=== PATIENT | female | born 1995 | race Caucasian/White ===

== ENCOUNTER 2020-02-19 15:43 | Emergency (ER) | payer SELFPAY ==
[2020-02-19 16:43] VITALS: BP 134/98; PULSE 80; RESP 16; TEMP 37.8; O2SAT 100; BMI 28.9
--- NOTE | 2020-02-19 16:52 | PC.NURSE ---
AFTER TRIAGE PT DECIDED TO LEAVE - FEELING BETTER. THOUGH SHE HAD A PANIC ATTACK. WILL RETURN PRN
== END 2020-02-19 17:00 | disposition left against medical advice (07) ==
PROVIDERS: Emergency Provider Emergency Medicine
DX: M54.9 Dorsalgia, unspecified (principal)
CPT/HCPCS: 99281; 99282

== ENCOUNTER 2022-03-22 22:31 | Emergency (ER) | payer SELFPAY | END 2022-03-23 00:12 | disposition left against medical advice (07) | PROVIDERS: Emergency Provider Emergency Medicine | DX: S09.90XA Unspecified injury of head, initial encounter (principal); X58.XXXA Exposure to other specified factors, initial encounter; Y93.9 Activity, unspecified; Y92.9 Unspecified place or not applicable; Y99.9 Unspecified external cause status ==

== ENCOUNTER 2024-03-01 13:22 | Outpatient (REF) | payer OTHER, SELFPAY ==
[2024-03-01 13:40] LABS: MANUAL DIFF FLAG NO
[2024-03-01 14:13] LABS: Basophils Absolute Auto 0.1 X10*3/uL (0.0-0.2); Basophils Percent Auto 0.6 % (0-2); Eosinophils Absolute Auto 0.1 X10*3/uL (0.0-0.4); Hematocrit 39.4 % (37.0-47.0); Hemoglobin 13.4 g/dl (12.0-16.0); Imm Gran Abs Auto 0.05 X10*3/uL (0.00-0.03); Imm Gran Pct Auto 0.6 % (0.0-0.4); Lymphocytes Absolute Auto 2.2 X10*3/uL (1.2-4.9); Lymphocytes Percent Auto 25.2 % (20-40); Mean Corpuscular Volume 85.3 fL (80.0-98.0); Mean Platelet Volume 10.3 fL (9.4-12.3); Monocytes Absolute Auto 0.6 X10*3/uL (0.1-1.2); Monocytes Percent Auto 6.8 % (2-11); Neutrophils Absolute Auto 5.7 x10*3/uL (2.0-8.3); Neutrophils Percent Auto 65.8 % (45-73); Platelet Count 288 X10*3/uL (160-400); Red Blood Count 4.62 X10*6/uL (4.20-5.50); White Blood Count 8.7 X10*3/uL (4.8-10.8)
[2024-03-01 15:04] LABS: Alanine Aminotransferase 16 U/L (0-31); Albumin Level 4.5 g/dL (3.5-5.0); Alkaline Phosphatase 56 U/L (39-117); Anion Gap 10 (12-20); Aspartate Amino Transferase 19 U/L (5-31); Bilirubin Total 0.3 mg/dL (0.0-1.0); Blood Urea Nitrogen 10 mg/dL (9-16); Calcium 9.3 mg/dL (8.4-10.2); Carbon Dioxide 23 mmol/L (22-29); Chloride 110 mmol/L (96-108); Estimated Glomerular Filt Rate > 60; Glucose Random 93 mg/dL (60-115); Sodium 139 mmol/L (135-145); Total Protein 7.3 g/dL (6.5-8.0)
[2024-03-01 15:16] LABS: Free T4 (Free Thyroxine) 1.01 ng/dL (0.71-1.85); TSH reflex Free T4 0.76 uIU/mL (0.32-4.0)
[2024-03-01 15:20] LABS: Vitamin B12 625 pg/mL (200-900)
[2024-03-06 15:48] LABS: Vitamin D 25-OH, D2 <4 ng/mL; Vitamin D 25-OH, D3 24 ng/mL; Vitamin D 25-OH, Total 24 ng/mL (30-100)
== END 2024-03-01 13:23 | disposition home or self-care (01) ==
LOC: HO.LAB 13:22
DX: Z00.00 Encounter for general adult medical examination without abnormal findings (principal)
CPT/HCPCS: 36415; 80053; 82306; 82607; 82746; 84439; 84443; 85025

== ENCOUNTER 2024-09-14 22:14 | Emergency (ER) | payer SELFPAY ==
--- NOTE | ~2024-09-14 | XR_ITS ---
CLINICAL HISTORY: dog bite 3 view left hand Comparison: None Findings: No fractures or dislocations. No significant loss of joint space or osteophytes. No erosions. No radiopaque foreign body. Mildly diffuse soft tissue swelling. IMPRESSION: 1. No acute fracture This document has been electronically signed by: Sai Nixon MD on 09/15/2024 01:39:27
[2024-09-14 22:17] VITALS: BP 141/88; PULSE 85; RESP 16; TEMP 36.9; O2SAT 99; BMI 31.2
--- NOTE | 2024-09-14 23:29 | ED.ANIMALBIT ---
HPI - Animal Bite General Chief Complaint: Animal Bite Stated Complaint: dog bite Time Seen by Provider: 09/14/24 23:28 Source: patient and old records reviewed Mode of arrival: ambulatory Limitations: no limitations History of Present Illness ED Provider: MIGUEL GARCIA narrative: 29 yo female with PMH of asthma, anxiety here with c/o taking her dog's sweater off and he freaked out and he lashed out and bit her at the base of the thumb. No other injuries. Dog is UTD on rabies. No recent Tdap. Bleeding controlled. 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) Animal: dog Description of animal: household pet and immunizations UTD Mechanism: bite Location - Extremities: left: hand Pain description: dull and constant Context: unprovoked (thinks something happened and caused pain when she removed his sweater) Associated symptoms: none Treatments prior to arrival: wound dressing(s) Related Data Previous Rx's ?Medication ?Instructions ?Recorded montelukast 10 mg tablet 10 mg PO DAILY 30 days #30 tabs 09/21/22 (Singulair) tizanidine 2 mg tablet 2 mg PO Q8H PRN muscle spasticity 09/21/22 10 days #30 tabs albuterol sulfate 90 mcg/actuation 1 inh inhalation QID PRN shortness 12/02/23 aerosol inhaler of breath or wheezing 30 days #8.5 grams cefuroxime axetil 500 mg tablet 500 mg PO BID 3 days #6 tabs 09/15/24 hydrocodone 5 mg-acetaminophen 325 1 tab PO Q6H PRN pain #8 tabs 09/15/24 mg tablet metronidazole 500 mg tablet 500 mg PO BID 3 days #6 tabs 09/15/24 ondansetron 4 mg disintegrating 4 mg PO Q8H PRN nausea and 09/15/24 tablet vomiting #20 tabs Allergies Allergy/AdvReac Type Severity Reaction Status Date / Time amoxicillin Allergy Mild Rash Verified 09/14/24 22:18 Sulfa (Sulfonamide Allergy Unknown Verified 09/14/24 22:18 Antibiotics) tetracycline Allergy Unknown Verified 09/14/24 22:18 Review of Systems Review of Systems: Constitutional : No Fever, No Chills, Cardiovascular : No Chest Pain, No SOB Respiratory : No Dyspnea Gastrointestinal : No abdominal pain Musculoskeletal : No Joint Swelling Skin : No rash, positive skin laceration Neuro : No Weakness, No Numbness all other systems reviewed and are negative [facility] Past Medical History Attestation statement: The following information was validated with the patient. Source: old records reviewed Medical History (Updated 09/14/24 @ 23:48 by Dorcas Ontiveros DO) Asthma RAAD (generalized anxiety disorder) Surgical History History of lumpectomy of left breast History of wisdom tooth extraction History of tonsillectomy Family History Family History Mother Anxiety Father Substance use disorder Social History Social History Housing: House Alcohol intake: never Tobacco use type: Smokeless Tobacco e-Cigarette/Vaping Use: Currently Using Second Hand Smoke Exposure: No Advance Directives: No Advance Directives Information Provided: No Do you have a plan to hurt others: No Plan service: No Current occupational status: employed Current occupation: RN- [employer] Cognitive needs: No Hearing needs: No Vision needs: Yes Physical Exam ED Vital Signs: Vital Signs - 24 hr 09/14/24 22:17 Temperature 98.5 F Pulse Rate 85 Respiratory Rate 16 Blood Pressure 141/88 H Pulse Oximetry 99 Oxygen Delivery Method Room Air BMI result Body Mass Index 31.2 Appearance: Alert. Oriented X3. No acute distress. Eyes: Pupils equal, round and reactive to light. ENT: Pharynx normal. Neck: Normal inspection. Neck supple. CVS: Pulses normal. Respiratory: No respiratory distress. Abdomen: atraumatic Skin: Skin warm and dry. Normal skin color. Extremities:L hand thumb NV intact, normal ROM has small 0.5cm puncture wound in thumb and 1st digit webspace, down to dermis, no active bleeding very small Neuro: Oriented X 3. No motor deficit. No sensory deficit. CN2-12 intact Medications Administered Discontinued Medications Generic Name Dose Route Start Last Admin Trade Name Freq PRN Reason Stop Dose Admin Hydrocodone Bitart/Acetaminophen 1 tab 09/14/24 23:36 09/15/24 00:16 Hydrocodone Bit/Acetam 5/325 Tablet PO 09/14/24 23:37 1 tab ONCE ONE Administration Cefuroxime Axetil 500 mg 09/14/24 23:34 09/15/24 00:17 Cefuroxime Axetil 500 Mg Tablet PO 09/14/24 23:35 500 mg ONCE ONE Administration Diphtheria/Tetanus/Acell Pertussis 0.5 ml 09/14/24 23:36 09/15/24 00:17 Diphth,Pertus(Acell),Tet Adult 0.5 Ml Syringe IM 09/14/24 23:37 0.5 ml .ONCE ONE Administration Metronidazole 500 mg 09/14/24 23:34 09/15/24 00:17 Metronidazole 500 Mg Tablet PO 09/14/24 23:35 500 mg ONCE ONE Administration Ondansetron HCl 4 mg 09/14/24 23:36 09/15/24 00:17 Ondansetron Odt 4 Mg Tab.Rapdis TRANSLINGU 09/14/24 23:37 4 mg ONCE ONE Administration Medical Decision Making Medical Decision Making MDM Narrative: 29 yo female with PMH of asthma, anxiety here with c/o L hand dog puncture wound she is NV intact, normal ROM of hand - she has many allergies to abx at this time will start proph abx coverage with ceftin and flagyl for 3 days. Will xray for fracture low susp, given the size of the wound 0.5cm down to dermis I will close with steri strips after irrigation. Differential Diagnosis Differential Diagnoses: The differential diagnosis associated with the presentation includes puncture wound, dog bite Admission/Observation Consideration of admission/observation: Escalation of care including admission/observation considered stable for outpatient management Independent Interpretation I performed an independent interpretation of an: Plain X-Ray (no fracture) Radiology Impression Discussion of test interpretation with radiology: I have reviewed the radiologist's reading. Independent Historian Clinical information obtained from an independent historian. History obtained from or confirmed by: Friend External Record Review External record reviewed: Outpatient record Prescription Management I considered prescription management with: Pain Medication and Antibiotic Procedures Laceration Laceration 1: Site: hand Side (If applicable): left Size (cm): 0.5 Description: other (superficial puncture wound) Depth: simple, single layer Pre-repair: wound explored, irrigated extensively and deep structures intact Skin layer closed with: other (steri strip) Discharge Plan Discharge Clinical Impression: Dog bite, Puncture wound Patient Disposition: Home, Self-Care Instructions: Animal Bite (ED), Puncture Wound (ED) Additional Instructions: keep clean and dry do not get wet for the next 5 days unless soiled change dressing in 24 hours return for redness, fevers, yellow drainage steri strips will fall off on its own allow them to fall off initial xray read normal if there is anything unusual after radiologist reviews it I will call you On a cephalosporin?antibiotic, softer bowel movements are to be expected. Call your provider if you move your bowels more than 4 times a day, your bowel movements are almost all liquid, or you get a rash.?? On metronidazole, do NOT drink alcohol.? Call your provider if a metallic taste, loss of appetite, or nausea makes it difficult for you to eat.? Call your provider promptly if tingling develops in your hands or feet after you have taken a total of 30 grams or more of metronidazole. ? Prescriptions: New cefuroxime axetil 500 mg tablet 500 mg PO BID 3 Days Qty: 6 0RF ondansetron 4 mg tablet,disintegrating 4 mg PO Q8H PRN (Reason: nausea and vomiting) Qty: 20 0RF metronidazole 500 mg tablet 500 mg PO BID 3 Days Qty: 6 0RF hydrocodone-acetaminophen 5-325 mg tablet 1 tab PO Q6H PRN (Reason: pain) Qty: 8 0RF Rx Instructions: partial fill okay; Partial Fill upon patient request. No Action albuterol sulfate 90 mcg/actuation HFA aerosol inhaler 1 inh inhalation QID PRN (Reason: shortness of breath or wheezing) 30 Days Qty: 8.5 0RF montelukast [Singulair] 10 mg tablet 10 mg PO DAILY 30 Days Qty: 30 3RF tizanidine 2 mg tablet 2 mg PO Q8H PRN (Reason: muscle spasticity) 10 Days Qty: 30 0RF Stand Alone Forms: Work/School Release Print Language: British
[2024-09-15] MEDS: HYDROcodone Bit/Acetam 5/325 TABLET 1 TAB PO (00:16)
[2024-09-15] MEDS: cefuroxime axetiL 500 MG TABLET PO (00:17)
[2024-09-15] MEDS: Ondansetron ODT 4 MG TAB.RAPDIS TRANSLINGU (00:17)
[2024-09-15] MEDS: Diphth,Pertus(ACell),Tet Adult 0.5 ML SYRINGE IM (00:17)
[2024-09-15] MEDS: metroNIDAZOLE 500 MG TABLET PO (00:17)
--- NOTE | 2024-09-15 00:22 | PC.NURSE ---
This RN assumed pt care @ 2300. Pt a&ox4, no signs of distress. Pt reports 6/10 pain in the left hand Pt medicated per mar Pts family at bedside Plan of care ongoing.
[2024-09-15 00:46] VITALS: BP 117/88; PULSE 86; RESP 16; TEMP 36.3; O2SAT 98
[2024-09-15 00:49] VITALS: BP 117/88; PULSE 86; RESP 16; TEMP 36.3; O2SAT 98
== END 2024-09-15 00:51 | disposition home or self-care (01) ==
PROVIDERS: Emergency Provider Emergency Medicine
DX: S61.432A Puncture wound without foreign body of left hand, initial encounter (principal); W54.0XXA Bitten by dog, initial encounter; Y93.89 Activity, other specified; Y92.009 Unspecified place in unspecified non-institutional (private) residence as the place of occurrence of the external cause; Y99.9 Unspecified external cause status; Z23 Encounter for immunization
CPT/HCPCS: 73130; 90471; 90715; 99284

== ENCOUNTER → 2024-09-15 00:01 | Outpatient (BNV) | payer SELFPAY | PROVIDERS: Emergency Provider Emergency Medicine; Visit Provider Radiology Diagnostic Radiology | DX: S61.402A Unspecified open wound of left hand, initial encounter (principal); W54.0XXA Bitten by dog, initial encounter | CPT/HCPCS: 73130 ==

== ENCOUNTER 2024-10-29 12:06 | Emergency (ER) | payer OTHER, SELFPAY ==
--- OUTSIDE RECORDS SUMMARY | 2017-02-18 10:49 | XMS_ITS | Continuity of Care Document ---
Author Organization [facility] Address [address] [place] [address] [place] [address] Phone Care Team Providers Care Director Of Music Therapy Name Role Phone Fercho Catalan MD Unavailable Unavailable Allergies, Adverse Reactions, Alerts Substance Reaction Status Criticality Tetracyclines Active No Information amoxicillin Active No Information Medications Medication Instructions Dosage Effective Dates (start - stop) Status Comments dexamethasone 4 mg tablet take 1 tablet Post Op Day 3 - Active May crush. Additional pill for use in case first one is lost. Adipex-P 37.5 mg capsule take 1 capsule by oral route every day before breakfast - Active ibuprofen 800 mg tablet take 1 tablet by oral route 3 times every day with food 800 MG - Active NuvaRing 0.12 mg -0.015 mg/24 hr vaginal insert 1 vaginal ring by vaginal route every month leave in place for 3 weeks, remove for 1 week 1.00 vaginal ring - Active Paxil CR 12.5 mg tablet,extended release take 1 tablet by oral route every day 12.5 MG - Active ProAir HFA 90 mcg/actuation aerosol inhaler inhale 2 puff by inhalation route every 4 - 6 hours as needed - Active tramadol 50 mg tablet take 1 tablet by oral route every 6 hours as needed 50 MG - Active Xanax 0.25 mg tablet take 1.5 tablet by oral route every day 0.375 MG - Active Zanaflex 4 mg capsule take 1 capsule by oral route every day 4 MG - Active multivitamin tablet once daily - Active Vitamin C 500 mg tablet once daily - Active hydrocodone 10 mg-acetaminophen 325 mg tablet take 1 tablet by oral route every 4 - 6 hours as needed for pain 1.00 tablet - No Longer Active Procedures Procedure Date Tonsillectomy >12 PRE-OP (DNB) Office Consult Level 4 Comprehensive Audiometry Tympanometry Advance Directives Directive Yes / No Effective Date File Name No Information Encounters Encounter Description Practice Location Reason(s) For Visit Diagnoses Date Provider Providers Copied on Encounter [address] , [place], [place], [id number], [place] tel:[phone] [facility] No Information 7 Alayna Brantley. [address] [place] [address], [id number] , [place]. tel: [phone] [address] , [place], [place], [id number], [place] tel:[phone] [facility] No Information 7 Alayna Brantely. [address] [place] [address], [id number] , [place]. tel: [phone] Referring Provider: Everett Monet, [address] [place] [address], [id number] . tel:[phone] [place] [id number], [place] tel:[phone] [facility] Pre Op Tonsillectomy (chief complaint) Chronic tonsillitis 7 Alayna Brantley. [address] [place] [address], [id number] , [place]. tel: [phone] Referring Provider: Fercho Catalan, [address] [place] [address], [id number] . tel:[phone] Office Consult Level [address] [place], [id number], [place] tel:[phone] [facility] Sore throat (chief complaint) Unspecified hearing loss, unspecified earChronic tonsillitisOt her chronic diseases of tonsils and adenoidsOtalg ia, bilateral Jan- Chiki Floyd. [address] [place] [address], [id number] , [place]. tel: [phone] Referring Provider: Antwan Bateman, [address] [place], [address]. tel:[phone] , [place], [place], [id number], [place] tel:[phone] [facility] Otalgia, bilateral Jan- Chiki Bran. [address] [place] [address], [id number], [place]. tel: [phone] Referring Provider: Everett Monet, [address] [place] [address], [id number] . tel:[phone] , [place], [place], [id number], [place] tel:[phone] [facility] No Information Chiki Floyd. [address] [place] [address], [id number] , [place]. tel: [phone] Family History Family Member Type Diagnosis Age At Onset Maternal grandfather Problem (finding) malignant neopl asm of lung Maternal grandmother Problem (finding) malignant neopl asm of lung Paternal grandfather Problem (finding) malignant neopl asm of lung Maternal grandmother Problem (finding) chronic obstruc tive lung disease Father Problem (finding) Hepatitis B Father Problem (finding) Hepatitis C Payers Payer name Insurance type Covered green party ID Authoriza tion(s) No Information Social History Type Description Quantity Date Captured Comments Alcohol Use Details Unknown Caffeine Use Details Unknown Tobacco Use Status No Information Smoking Status No Information Sex Female Chief Complaint And Reason For Visit No Information Reason For Referral Reason For Referral No Information Plan Of Treatment Date Type Action Status Goal HPV (1st). Due on due Goal Td vaccine. Due on due Goal Depression screening. Due on due Goal Physical Exam. Due on due Goal Tdap. Due on due Goal PAP. Due on due Goal Influenza vaccine. Due on Oc due Goal PAP. Due on due Goal Influenza vaccine. Due on due Goal HPV (). Due on due Goal Depression screening. Due on due Goal Td vaccine. Due on due Goal Tdap. Due on due Goal Physical Exam. Due on due Goal Depression screening. Due on due Goal HPV (1st). Due on due Goal Physical Exam. Due on due Goal Td vaccine. Due on due Goal Influenza vaccine. Due on due Goal Tdap. Due on due Goal PAP. Due on due Goal Tdap. Due on due Goal HPV (1st). Due on due Goal Depression screening. Due on due Goal PAP. Due on due Goal Physical Exam. Due on due Goal Td vaccine. Due on due Goal Influenza vaccine. Due on due Patient Education Hearing Tests: About selina Tests completed History Of Present Illness Encounter Date Complaint History Of Prese nt Illness Pre Op Tonsillectomy Pre-op for tonsillectomy . The nature, risks and benefits of the procedure were explained to the patient and parents. The risks include but are not limited to postoperative or perioperative hemorrhage, infection, respiratory obstruction, velopharyngeal insufficiency, alteration of taste, numbness of the tongue, alteration of voice and medical or anesthetic complications. Alternatives inclulde chronic antibiotic therapy versus doing nothing. They understand the nature, risks and benefits of the procedure as well as the alternatives and indicate a willingness to proceed as scheduled.Maral Lopez LPN Sore throat (comments) history o f recurrent episodes of severe sore throat causing missed time from work or school. No documented strep but occasional tonsilloliths. No exterminator helper improvement with antibiotics or OTC meds. Snoring intermittent. Sore throat Functional Status Date Functional Assessmen t No Information Instructions Date Instruction Additional Infor mation No Information Assessments Type Assessment Date No Information Patient Care Teams Name Effective Dates (start - stop) Status Members No Information
--- NOTE | ~2024-10-29 | XR_ITS ---
EXAMINATION: XR LUMBOSACRAL SPINE CLINICAL INFORMATION: back pain COMPARISON: None available. TECHNIQUE: Three views of the lumbosacral spine. FINDINGS: There are vestigial ribs at L1. Vertebral body height and alignment is preserved. Disc spaces are maintained. XR/XR lumbar spine 2-3V IMPRESSION: Unremarkable examination. Electronically signed by: Bob Lake MD 10/29/2024 01:31 PM EDT
--- NOTE | ~2024-10-29 | XR_ITS ---
EXAMINATION: XR SACRUM AND COCCYX CLINICAL INFORMATION: pain COMPARISON: None available. TECHNIQUE: 2 views of the sacrum and 2 views of the coccyx were obtained. FINDINGS: SI joints are symmetrical without narrowing, sclerosis, or effusion. No fracture lines or irregular step-offs are noted. XR/XR sacrum coccyx min 2V IMPRESSION: Unremarkable sacrum and coccyx Electronically signed by: Bob Lake MD 10/29/2024 01:31 PM EDT
[2024-10-29 12:18] VITALS: BP 129/87; PULSE 90; RESP 16; TEMP 36.1; O2SAT 99; BMI 31.9
--- NOTE | 2024-10-29 12:18 | ED_ITS ---
HPI - Back Pain/Injury General Chief Complaint: Back Pain/Injury Stated Complaint: Back Pain Injury @ Work 2 Wks Ago Time Seen by Provider: 10/29/24 17:23 History of Present Illness ED Provider: Chadwick Mancilla MD HPI Narrative: This is a 29-year-old female with chronic upper back pain. 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 Patient denies any incontinence, numbness or motor deficits. She feels an occasional twinge of electric-like pain down the left leg although the pain is primarily in her right upper buttock region. No direct blow to the back she had x-rays ordered prior to my evaluation of her at triage Related Data Previous Rx's ?Medication ?Instructions ?Recorded montelukast 10 mg tablet 10 mg PO DAILY 30 days #30 t abs 09/21/22 (Singulair) tizanidine 2 mg tablet 2 mg PO Q8H PRN muscle spast icity 09/21/22 10 days #30 tabs albuterol sulfate 90 mcg/actuation 1 inh inhalation QI D PRN shortness 12/02/23 aerosol inhaler of breath or wheezing 30 day s #8.5 grams cefuroxime axetil 500 mg tablet 500 mg PO BID 3 days # 6 tabs 09/15/24 hydrocodone 5 mg-acetaminophen 325 1 tab PO Q6H PRN pa in #8 tabs 09/15/24 mg tablet metronidazole 500 mg tablet 500 mg PO BID 3 days #6 ta bs 09/15/24 ondansetron 4 mg disintegrating 4 mg PO Q8H PRN nausea and 09/15/24 tablet vomiting #20 tabs methocarbamol 750 mg tablet 750 mg PO TID PRN spasms 5 days 10/29/24 #15 tabs Allergies Allergy/AdvReac Type Severity Reaction Status Date / Time amoxicillin Allergy Mild Rash Verified 10/29/24 12:20 Sulfa (Sulfonamide Allergy Unknown Verified 10/29/24 12:20 Antibiotics) tetracycline Allergy Unknown Verified 10/29/24 12:20 PMF Past Medical History Medical History (Updated 10/30/24 @ 00:00 by Philip Haines) Asthma RAAD (generalized anxiety disorder) Surgical History History of lumpectomy of left breast History of wisdom tooth extraction History of tonsillectomy Family History Family History Mother Anxiety Father Substance use disorder Social History Social History Housing: House Alcohol intake: never Tobacco use type: Smokeless Tobacco Smoked in Last 30 Days: No e-Cigarette/Vaping Use: Currently Using Second Hand Smoke Exposure: No Use of substances other than those prescribed or required for medical reasons: No Advance Directives: No Advance Directives Information Provided: No Patient : No service: No Current occupational status: employed 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 Head: Atraumatic Eyes: Anicteric, Normal conjunctiva. ENT: Moist mucosa, no pallor. ? Neck: Supple. Skin: ?No observable rash or bruising on exposed or examined skin Respiratory: Breathing comfortably, No distress.Clear to auscultation bilaterally, symmetric chest expansion, No wheeze, rales, ronchi. Cardiovascular: Regular rate and rhythm. No murmurs or rub. Well perfused periphery, warm extremities. No edema. ? Abdominal: No FOCAL TENDERNESS. Soft, no objective distension. No palpable masses or obvious organomegaly. ?No guarding, no rebound tenderness or other peritoneal findings. : No flank tenderness. Neuro: Alert. Gross movement of all extremities intact. ?5/5 strength bilateral lower extremities proximal and distal. Psych: Calm. Cooperative. MSK: No grossly visible deformity. Mild tenderness right upper buttock region no bruising. Right lumbosacral area slightly tender. No midline tenderness Vital signs: See flowsheet Course Course Course Narrative: This is an RME: Additional HPI, ROS, PE not included below will be deferred to primary provider. RME assessment and note performed by: Jennifer Chiang PA-C This is a [id number]-female who presents to the ER with complaints of back pain for several weeks. Reports that she was at work moving a patient and injured her back. Reports that she did not report this at her job. Patient reports tenderness palpation along the lumbar midline spine into the right lumbar paraspinous muscles. Does report pain radiates down her left leg. No saddle an esthesia. No urinary symptoms. Does report chance of , last menstrual period was October 06 Plan: U preg, x-rays Medications Administered Discontinued Medications Generic Name Dose Route Start Last Admin Trade Name Freq PRN Reason Stop Dose Admin Acetaminophen 975 mg 10/29/24 17:35 10/29/24 17:53 Acetaminophen 325 Mg Tablet PO 10/29/24 17:36 975 mg ONCE ONE Administration Ketorolac Tromethamine 15 mg 10/29/24 17:35 10/29/24 17:54 Ketorolac Tromethamine 15 Mg/Ml Vial IM 10/29/24 17:36 15 mg ONCE ONE Administration Lidocaine 2 patch 10/29/24 17:35 10/29/24 17:54 Lidocaine 4 % Patch Adh..Patch TRANSDERMA 10/29/24 17:36 2 patch ONCE ONE Administration Protocol Methocarbamol 750 mg 10/29/24 17:35 10/29/24 17:54 Methocarbamol 750 Mg Tablet PO 10/29/24 17:36 750 mg ONCE ONE Administration Medical Decision Making Medical Decision Making MDM Narrative: 29-year-old female with right lumbosacral back pain. No direct blow or injury she attributes this to a twisting or lifting type injury while at work proximally 6 days ago. No red flag signs or symptoms patient looks well although she has occasionally tearful and reports severe pain. Doubt acute neuro compressive injury or process. She is ambulatory and comfortable. Differential Diagnosis Differential Diagnoses: The differential diagnosis associated with the presentation includes Lumbosacral strain, disc herniation, sciatica, piriformis syndrome, spasm Lab Data Labs: Lab Results 10/29/24 Range/Units 12:45 Urine Test NEGATIVE (NEGATIVE) Discharge Plan Discharge Clinical Impression: Lumbar back pain Patient Disposition: Home, Self-Care Instructions: Acute Low Back Pain (ED) Additional Instructions: DISCHARGE DIAGNOSES: Right low back pain. Unclear cause HISTORY OF PRESENTATION: 6 days of right low back pain EMERGENCY DEPARTMENT COURSE,TESTS, TREATMENTS: While in the ED today you had x- rays of your the sacrum and pelvis and lumbar bones without signs of bony injury DISCHARGE MEDICATIONS: ?[We have made no changes to your regular medication regimen] FOLLOW-UP: ?Call your primary or general physician soon as possible to discuss your symptoms, your ED visit and to discuss follow up plans You will need follow up with your primary doctor and/or pain management if this persists INSTRUCTIONS ?& RETURN PRECAUTIONS: If any symptoms change first call your primary physician, if it is after-hours your primary doctors office should have a provider neighborhood conservation officer you can speak with. If the symptoms are severe or very concerning to you then call 911 or return to the ED. We recommend warm soaks, topical Voltaren gel which is [id number], massage or heating pad as well as NSAIDs such as ibuprofen 600 or 800 mg every 8 hours. Chadwick Mancilla MD Emergency Physician [facility] Prescriptions: New methocarbamol 750 mg tablet 750 mg PO TID PRN (Reason: spasms) 5 Days Qty: 15 0RF No Action albuterol sulfate 90 mcg/actuation HFA aerosol inhaler 1 inh inhalation QID PRN (Reason: shortness of breath or wheezing) 30 Days Qty: 8.5 0RF cefuroxime axetil 500 mg tablet 500 mg PO BID 3 Days Qty: 6 0RF ondansetron 4 mg tablet,disintegrating 4 mg PO Q8H PRN (Reason: nausea and vomiting) Qty: 20 0RF metronidazole 500 mg tablet 500 mg PO BID 3 Days Qty: 6 0RF hydrocodone-acetaminophen 5-325 mg tablet 1 tab PO Q6H PRN (Reason: pain) Qty: 8 0RF Rx Instructions: partial fill okay; Partial Fill upon patient request. montelukast [Singulair] 10 mg tablet 10 mg PO DAILY 30 Days Qty: 30 3RF tizanidine 2 mg tablet 2 mg PO Q8H PRN (Reason: muscle spasticity) 10 Days Qty: 30 0RF Stand Alone Forms: Work/School Release Interventions: ED Discharge Assessment Last Done: 10/29/24 19:32 Discharge Date/Time: 10/29/24 19:38 Print Language: Romanian
[2024-10-29 12:51] LABS: UPreg QC Valid YES; Urine Pregnancy NEGATIVE (NEGATIVE)
[2024-10-29 17:02] VITALS: BP 122/74; PULSE 68; RESP 16; TEMP 37.1; O2SAT 99
[2024-10-29] MEDS: Acetaminophen 325 MG TABLET 975 MG PO (17:53)
[2024-10-29] MEDS: methocarbamoL 750 MG TABLET PO (17:54)
[2024-10-29] MEDS: Ketorolac Tromethamine 15 MG/ML VIAL IM (17:54)
[2024-10-29] MEDS: Lidocaine 4 % Patch ADH..PATCH 2 PATCH TRANSDERMA (17:54)
[2024-10-29 19:24] VITALS: BP 121/75; PULSE 68; RESP 16; TEMP 36.8; O2SAT 99
[2024-10-29 19:32] VITALS: BP 121/75; PULSE 68; RESP 16; TEMP 36.8; O2SAT 99
== END 2024-10-29 19:38 | disposition home or self-care (01) ==
PROVIDERS: Physician Assistant Medical; Emergency Provider Emergency Medicine
DX: M54.50 Low back pain, unspecified (principal); M54.6 Pain in thoracic spine; Z79.899 Other long term (current) drug therapy
CPT/HCPCS: 72100; 72220; 81025; 96372; 99284; J1885

== ENCOUNTER → 2024-10-29 12:22 | Outpatient (BNV) | payer OTHER, SELFPAY | PROVIDERS: Visit Provider Radiology Diagnostic Radiology | DX: M54.50 Low back pain, unspecified (principal); M54.18 Radiculopathy, sacral and sacrococcygeal region | CPT/HCPCS: 72100; 72220 ==

== ENCOUNTER 2025-03-19 10:06 | Emergency (ER) | payer OTHER, SELFPAY ==
--- NOTE | ~2025-03-19 | US_ITS ---
EXAMINATION: US OBSTETRICAL ULTRASOUND CLINICAL INFORMATION: Cramping. Gestational age estimated at 5 weeks. COMPARISON: None available. LMP: 02/12/2025. Gestational age by maternal dates is 5 weeks 0 days. TECHNIQUE: Transabdominal and transvaginal first trimester OB ultrasound FINDINGS: The uterus is anteverted and measures 8.6 x 3.8 x 4.8 cm. There is an intrauterine gestational sac. No pole or yolk sac. Gestational sac is slightly abnormal in shape, oblong in appearance. Mean sac diameter measures 0.75 cm which would suggest gestational age of 5 weeks 3 days. There is a small hypoechoic area adjacent to the gestational sac questionable for subchorionic hemorrhage. MATERNAL ADNEXA: The right maternal ovary measures 4.5 x 2.2 x 2.1 cm. 3 x 2.2 x 2.1 cm simple cyst. The left maternal ovary measures 2.9 x 1.4 x 2.4 cm. 1.3 x 1.1 x 1 cm complex cyst. Small amount of maternal pelvic ascites. US/US OB pelvic and transvaginal IMPRESSION: Intrauterine gestational sac. No pole or yolk sac. Gestational sac slightly abnormal or elongated in shape. Mean sac diameter suggests gestational age 5 weeks 3 days. Probable small subchorionic hemorrhage. Bilateral ovarian cysts measuring up to 3 cm on the right. Recommend correlation with serial quantitative beta hCG and follow-up OB ultrasound in 1-2 weeks. Electronically signed by: Ani Genao MD 03/19/2025 03:05 PM [facility] [place]
[2025-03-19 10:33] VITALS: BP 132/93; PULSE 101; RESP 20; TEMP 36.7; O2SAT 100; BMI 30.8
--- NOTE | 2025-03-19 10:34 | ED.GENADULT ---
HPI - General Adult General Chief complaint: General Medical Stated complaint: Upper resp. and preg. Time Seen by Provider: 03/19/25 13:52 Source: patient, RN notes reviewed and old records reviewed Mode of arrival: ambulatory Limitations: no limitations History of Present Illness ED Provider: Susi HPI narrative: Patient is a 30 y/o A1 female LMP 02/12/25 presenting with complaint of congestion, cough, chills, fevers, headaches and lightheadedness for the past 3 weeks. Lungs hurt from coughing, fatigue. Just had several positive tests, was supposed to have first OB appt today but came here instead due to symptoms. Plans to proceed with this . She reports some mild lower abdominal cramping but denies any vaginal bleeding or other abnormal vaginal discharge. MD complaint: cough, abd cramping in Onset (ago): week(s) Related Data Previous Rx's ?Medication ?Instructions ?Recorded montelukast 10 mg tablet 10 mg PO DAILY 30 days #30 tabs 09/21/22 (Singulair) tizanidine 2 mg tablet 2 mg PO Q8H PRN muscle spasticity 09/21/22 10 days #30 tabs albuterol sulfate 90 mcg/actuation 1 inh inhalation QID PRN shortness 12/02/23 aerosol inhaler of breath or wheezing 30 days #8.5 grams cefuroxime axetil 500 mg tablet 500 mg PO BID 3 days #6 tabs 09/15/24 hydrocodone 5 mg-acetaminophen 325 1 tab PO Q6H PRN pain #8 tabs 09/15/24 mg tablet metronidazole 500 mg tablet 500 mg PO BID 3 days #6 tabs 09/15/24 ondansetron 4 mg disintegrating 4 mg PO Q8H PRN nausea and 09/15/24 tablet vomiting #20 tabs methocarbamol 750 mg tablet 750 mg PO TID PRN spasms 5 days 10/29/24 #15 tabs amoxicillin 500 mg tablet 1,000 mg (2 x 500 mg) PO TID 5 03/19/25 days #30 tabs Allergies Allergy/AdvReac Type Severity Reaction Status Date / Time amoxicillin Allergy Mild Rash Verified 03/19/25 10:36 Sulfa (Sulfonamide Allergy Unknown Verified 03/19/25 10:36 Antibiotics) tetracycline Allergy Unknown Verified 03/19/25 10:36 Review of Systems Review of Systems: As per HPI Yes all other systems are reviewed and are negative Constitutional: Constitutional: Reports as per HPI [facility] Past Medical History Medical History (Updated 03/19/25 @ 15:30 by Philip Haines) Asthma RAAD (generalized anxiety disorder) Surgical History History of lumpectomy of left breast History of wisdom tooth extraction History of tonsillectomy Family History Family History Mother Anxiety Father Substance use disorder Social History Social History Housing: House Alcohol intake: never Tobacco use type: Smokeless Tobacco e-Cigarette/Vaping Use: Currently Using Second Hand Smoke Exposure: No Advance Directives: No Advance Directives Information Provided: Yes Do you have a plan to hurt others: No Plan service: No Current occupational status: employed Current occupation: RN- [employer] Cognitive needs: No Hearing needs: No Vision needs: Yes Physical Exam ED Vital Signs: Vital Signs - 24 hr 03/19/25 10:33 03/19/25 15:30 Temperature 98.1 F 98.1 F Pulse Rate 101 H 101 H Respiratory Rate 20 20 Blood Pressure 132/93 H 132/93 H Pulse Oximetry 100 100 Oxygen Delivery Method Room Air Room Air BMI result Body Mass Index 30.8 Vital signs have been reviewed and appear to be correct. Blood pressure normal. Heart rate slightly tachycardic. Respiratory rate normal. Temperature normal. Oxygen saturation normal. Const General: cooperative, healthy appearing and no acute distress Orientation/consciousness: oriented to person, oriented to place, oriented to time and patient oriented x3 Limitations: no limitations HENMT Head: Yes normocephalic and Yes atraumatic Ears: external ears normal General nose exam: Normal external nose present Face and sinus: Yes face symmetric Mouth: oropharynx normal and moist mucous membranes Throat: Yes uvula midline Eyes Pupils: Equal, round and reactive pupils present Neck Neck: Yes normal visual inspection and Yes supple Resp Effort & Inspection: normal respiratory effort and able to speak in complete sentences Auscultation: clear to auscultation bilaterally Cardio Rate: regular rate Rhythm: regular rhythm Heart sounds: S1 normal heart sound present and S2 normal heart sound present GI Palpation (GI): Soft to palpation and nontender Auscultation: normoactive bowel sounds General: Yes no CVA tenderness Back/Spine/Pelvis Back: no CVA tenderness Skin General skin exam: elasticity normal and turgor normal Neuro General: oriented to person, oriented to place, oriented to time, patient oriented x3, moves all extremities, no focal motor deficits and CN's II-XI intact bilaterally Cranial nerves: Yes Equal, round and reactive pupils present Cognition (Neuro): normal cognition Extrem General: Yes full ROM, Yes no pedal edema and Yes no calf tenderness Psych Mental Status: mental status grossly normal Affect: normal affect Thought process: Normal thought process present Course Course Course Narrative: This is a rapid medical exam performed by Ellie Goldman NP: Additional HPI, ROS, PE not included below will be deferred to primary provider. Patient is a 30 y/o A1 female LMP 02/12 presenting with complaint of congestion, cough, chills, fevers for the past 3 weeks. Lungs hurt from coughing, fatigue. Just had several positive tests, was supposed to have first OB appt today but came here instead due to sxs. Plan: labs, viral swabs Medical Decision Making Medical Decision Making MDM Narrative: Patient is a 30 y/o A1 female LMP 02/12/25 presenting with complaint of congestion, cough, chills, fevers, headaches and lightheadedness for the past 3 weeks. On exam patient is awake, A+Ox3, VS WNL, afebrile, normal neurological exam without focal deficits, physical exam findings as above. Given reported symptoms and physical exam findings, initial differential includes but is not limited to viral illness, bronchitis, pneumonia, ectopic , UTI. Labs unremarkable. Patient specifically requesting chest x-ray. Discussed with patient that the chest x-ray is not safe in , and we can treat her with antibiotics presumptively. Patient has several allergies to antibiotics. Discussed that azithromycin would be the most appropriate choice but that there is a possible risk of spontaneous based on conflicting human data. Patient expressing concern regarding this however, and specifically requesting amoxicillin. Documented allergy of rash, which she states is from childhood. She denies hives or anaphylaxis. I am agreeable to trying amoxicillin but discussed with patient that if she develops any allergic symptoms she should stop this medication immediately and follow up with her primary care provider. Patient states that after her U/S she called her mother who reported that patient's only reaction to amoxicillin was a rash after several courses of it as a child. Never hives or anaphylaxis. OB U/S notable for gestational sac without pole or yolk sac, probable small subchorionic hemorrhage. My interpretation is in agreement with the radiologist's interpretation. Results discussed with patient and all questions answered. Advised patient to contact her director television news to discuss these results and establish follow up care. Discussed at length if she is unable to obtain OB follow up, she can present to [facility] as a walk-in. Return precautions discussed including vaginal bleeding, worsening cramping, etc. Patient verbalized understanding of and agreement with plan. Differential Diagnosis Differential Diagnoses: The differential diagnosis associated with the presentation includes as per [facility] Admission/Observation Consideration of admission/observation: Escalation of care including admission/observation considered Patient would have been admitted to the hospital and transferred to appropriate facility had their clinical presentation warranted hospital admission. Lab Data 03/19/25 11:21 03/19/25 11:21 Labs: Lab Results 03/19/25 03/19/25 Range/Units 11:18 11:21 WBC 8.4 (4.8-10.8) X10*3/uL RBC 4.65 (4.20-5.50) X10*6/uL Hgb 13.4 (12.0-16.0) g/dl Hct 40.5 (37.0-47.0) % MCV 87.1 (80.0-98.0) fL MCH 28.8 (27.0-33.0) pg MCHC 33.1 (31.0-35.0) g/dl RDW 12.8 (11.0-16.0) % Plt Count 266 (160-400) X10*3/uL MPV 9.7 (9.4-12.3) fL Immature Gran % (Auto) 0.5 H (0.0-0.4) % Neut % (Auto) 72.5 (45-73) % Lymph % (Auto) 15.2 L (20-40) % [place] % (Auto) 10.7 (2-11) % Eos % (Auto) 0.7 (0-4) % Baso % (Auto) 0.4 (0-2) % Lymph # (Auto) 1.3 (1.2-4.9) X10*3/uL [place] # (Auto) 0.9 (0.1-1.2) X10*3/uL Eos # (Auto) 0.1 (0.0-0.4) X10*3/uL Baso # (Auto) 0.0 (0.0-0.2) X10*3/uL Abs Immat Gran (auto) 0.04 H (0.00-0.03) X10*3/uL Absolute Neuts (auto) 6.1 (2.0-8.3) x10*3/uL Absolute Nucleated RBC 0.000 (0.0-0.012) X10*3/uL Nucleated RBC % (auto) 0.0 (0.0-0.2) /100WBC Sodium 137 (135-145) mmol/L Potassium 4.7 (3.3-5.1) mmol/L Chloride 107 (96-108) mmol/L Carbon Dioxide 23 (22-29) mmol/L Anion Gap 12 (12-20) BUN 8 L (9-16) mg/dL Creatinine 0.61 (0.5-1.4) mg/dL Estim Creat Clear Calc 117.9 Estimated GFR > 60 Random Glucose 90 (60-115) mg/dL Calcium 9.6 (8.4-10.2) mg/dL Total Bilirubin 0.3 (0.0-1.0) mg/dL AST 20 (5-31) U/L ALT 15 (0-31) U/L Alkaline Phosphatase 67 (39-117) U/L Total Protein 7.7 (6.5-8.0) g/dL Albumin 4.8 (3.5-5.0) g/dL Beta HCG, Quant 5381 mIU/mL Influenza Type A (PCR) NEGATIVE (Negative) Influenza Type B (PCR) NEGATIVE (Negative) RSV RNA Qual (PCR) NEGATIVE (Negative) SARS-CoV-2 RNA (RT-PCR) NEGATIVE (Negative) Independent Interpretation I performed an independent interpretation of an: Ultrasound Interpretation: OB U/S notable for gestational sac without pole or yolk sac, probable small subchorionic hemorrhage. Radiology Impression Discussion of test interpretation with radiology: I have reviewed the radiologist's reading. Radiologist Impression: US/US OB pelvic and transvaginal IMPRESSION: Intrauterine gestational sac. No pole or yolk sac. Gestational sac slightly abnormal or elongated in shape. Mean sac diameter suggests gestational age 5 weeks 3 days. Probable small subchorionic hemorrhage. Bilateral ovarian cysts measuring up to 3 cm on the right. Recommend correlation with serial quantitative beta hCG and follow-up OB ultrasound in 1-2 weeks. Discharge Plan Discharge Clinical Impression: Bronchitis, Abdominal cramping affecting , Abdominal pain during Patient Disposition: Home, Self-Care Instructions: Acute Bronchitis (ED), Abdominal Pain in (ED) Additional Instructions: You were evaluated in the emergency department today for cough, congestion, fevers. Your COVID, flu, and RSV tests were negative. You are being treated with antibiotics for bronchitis. Complete the full course as prescribed even if your symptoms improve. If you develop any signs of an allergic reaction, discontinue the medication immediately and follow up with your primary care provider. You were also evaluated for lower abdominal cramping in . Your ultrasound findings as discussed are noted below. It is important that you follow-up with an [facility] for further evaluation and management. If you are unable to establish care you can present to [facility] walk-in at [facility]. Do not take aspirin containing products. You need to follow up with your primary care doctor or OBGYN. Please return for worsening symptoms such as pain, dizziness, fainting, bleeding this is much heavier than a period and you are having large clots bigger than a golf ball. Please see list of OGBYN providers below if you do not have one. OBGYN and Midwifery [facility] [address] [place] [address] [phone] [facility] [address] [facility] [phone] [facility] [address] [place] [phone] OBGYN and Midwifery [facility] 30 [facility] [phone] [facility] [place] [phone] US/US OB pelvic and transvaginal IMPRESSION: Intrauterine gestational sac. No pole or yolk sac. Gestational sac slightly abnormal or elongated in shape. Mean sac diameter suggests gestational age 5 weeks 3 days. Probable small subchorionic hemorrhage. Bilateral ovarian cysts measuring up to 3 cm on the right. Recommend correlation with serial quantitative beta hCG and follow-up OB ultrasound in 1-2 weeks. Prescriptions: New amoxicillin 500 mg tablet 1,000 mg PO TID 5 Days Qty: 30 0RF No Action albuterol sulfate 90 mcg/actuation HFA aerosol inhaler 1 inh inhalation QID PRN (Reason: shortness of breath or wheezing) 30 Days Qty: 8.5 0RF cefuroxime axetil 500 mg tablet 500 mg PO BID 3 Days Qty: 6 0RF ondansetron 4 mg tablet,disintegrating 4 mg PO Q8H PRN (Reason: nausea and vomiting) Qty: 20 0RF metronidazole 500 mg tablet 500 mg PO BID 3 Days Qty: 6 0RF hydrocodone-acetaminophen 5-325 mg tablet 1 tab PO Q6H PRN (Reason: pain) Qty: 8 0RF Rx Instructions: partial fill okay; Partial Fill upon patient request. methocarbamol 750 mg tablet 750 mg PO TID PRN (Reason: spasms) 5 Days Qty: 15 0RF montelukast [Singulair] 10 mg tablet 10 mg PO DAILY 30 Days Qty: 30 3RF tizanidine 2 mg tablet 2 mg PO Q8H PRN (Reason: muscle spasticity) 10 Days Qty: 30 0RF Interventions: ED Discharge Assessment Last Done: 03/19/25 15:30 Discharge Date/Time: 03/19/25 15:31 Print Language: Venezuelan
[2025-03-19 11:26] LABS: MANUAL DIFF FLAG NO
[2025-03-19 11:34] LABS: Hematocrit 40.5 % (37.0-47.0); Hemoglobin 13.4 g/dl (12.0-16.0); Imm Gran Abs Auto 0.04 X10*3/uL (0.00-0.03); Imm Gran Pct Auto 0.5 % (0.0-0.4); Lymphocytes Absolute Auto 1.3 X10*3/uL (1.2-4.9); Mean Corpuscular HGB Conc 33.1 g/dl (31.0-35.0); Mean Corpuscular Hemoglobin 28.8 pg (27.0-33.0); Mean Corpuscular Volume 87.1 fL (80.0-98.0); NRBC Abs Auto 0.000 X10*3/uL (0.0-0.012); NRBC Pct Auto 0.0 /100WBC (0.0-0.2); Platelet Count 266 X10*3/uL (160-400); Red Blood Count 4.65 X10*6/uL (4.20-5.50); White Blood Count 8.4 X10*3/uL (4.8-10.8)
[2025-03-19 11:44] LABS: Alanine Aminotransferase 15 U/L (0-31); Albumin Level 4.8 g/dL (3.5-5.0); Alkaline Phosphatase 67 U/L (39-117); Anion Gap 12 (12-20); Aspartate Amino Transferase 20 U/L (5-31); Blood Urea Nitrogen 8 mg/dL (9-16); Calcium 9.6 mg/dL (8.4-10.2); Carbon Dioxide 23 mmol/L (22-29); Chloride 107 mmol/L (96-108); Creatinine Clr Calc Pharmacy 117.9; Estimated Glomerular Filt Rate > 60; Potassium 4.7 mmol/L (3.3-5.1); Sodium 137 mmol/L (135-145); Total Protein 7.7 g/dL (6.5-8.0)
[2025-03-19 12:04] LABS: Resp Syncy Virus RNA Qual PCR NEGATIVE (Negative); SARS COV2 PCR INHOUSE NEGATIVE (Negative)
[2025-03-19 15:30] VITALS: BP 132/93; PULSE 101; RESP 20; TEMP 36.7; O2SAT 100
--- OUTSIDE RECORDS SUMMARY | 2025-03-19 15:48 | XMS_ITS | Clinical Summary ---
Author Organization [employer] Address [address] [place] [address] Care Team Providers Care Diabetes Nurse Name Role Phone Unavailable Primary Care Provider Unavailabl e Encounters Date Type Department Care Team Description 03/18/2025 Travel from Last 3 Months Social History Tobacco Use Types Packs/Day Years Used Date Smoking Tobacco: Never Assessed Comments Unknown Sex and Gender Information Value Date Recorded Sex Assigned at Not on file Legal Sex Female 1:50 PM EST Gender Identity Not on file Sexual Orientation Not on file Plan of Treatment Health Maintenance Due Date Last Done Comments Depression Screening 1994 HIV Screening 1994 SDOH Screening 1994 Alcohol/Substance Use Screening 2006 Tobacco Screening 2006 Family Planning (PISQ) 2009 HPV Vaccines (1 - 3-dose series) 2009 Hepatitis C Screening 2012 Hepatitis B Vaccines (1 of 3 - 19+ 3-dose series) 2013 Pap Smear 2015 Cervical Cancer Screening 2024 HPV/Cotest 2024 COVID-19 Vaccine (1 - 2023-2 5 season) 2025 Influenza Vaccine (#1) 2025 02/23/2018 Disability Screening 03/18/2026 03/18/2025 DTaP/Tdap/Td Vaccines (3 - T d or Tdap) 09/15/2034 09/15/2024, 01/27/2018, 09/11/2015 Zoster Vaccines (1 of 2) 2044 RSV Patients and Patients Aged 60 years or older (1 - 1-dose 75+ series) 2069 HIB Vaccines Aged Out No longer eligi ble based on patient's age to complete this topic Hepatitis A Vaccines Aged Out No long er eligible based on patient's age to complete this topic IPV Vaccines Aged Out No longer eligi ble based on patient's age to complete this topic Meningococcal B Vaccine Aged Out No l onger eligible based on patient's age to complete this topic Meningococcal Vaccine Aged Out No turner gerda eligible based on patient's age to complete this topic Pneumococcal Vaccine: Pediatrics (0 to 5 Years) and At-Risk Patients (6 to 49) Years Aged Out No longer eligible b ased on patient's age to complete this topic RSV under 20 months Aged Out No longe r eligible based on patient's age to complete this topic Rotavirus Vaccines Aged Out No longer eligible based on patient's age to complete this topic Insurance [facility]
--- OUTSIDE RECORDS SUMMARY | 2025-03-19 15:48 | XMS_ITS | Encounter Summary ---
Author Organization [facility] Address [address] [place] [address] [address] [place] [address] Care Team Providers Care Back Tender [employer] Name Role Phone Unavailable Primary Care Provider Unavailabl e Encounter Details Date Type Department Care Team (Latest Contact Info) Description 03/18/2025 Travel Social History Tobacco Use Types Packs/Day Years Used Date Smoking Tobacco: Never Assessed Comments Unknown Sex and Gender Information Value Date Recorded Sex Assigned at Not on file Legal Sex Female 1:50 PM EST Gender Identity Not on file Sexual Orientation Not on file documented as of this encounter Plan of Treatment Not on file documented as of this encounter Visit Diagnoses Not on filedocumented in this encounter
--- OUTSIDE RECORDS SUMMARY | 2025-03-19 15:48 | XMS_ITS | Clinical Summary ---
Demographics Address [address] [place] [address] Mobile Phone Home Phone Email Address Preferred Language Afghan Marital Status Single Evangelical Affiliation Unknown Race White Ethnic Group Not or Lati no Author Organization [facility] Address [address] [place] [phone] Phone Care Team Providers Care Complaint Operator Name Role Phone Avi Edmondson Primary Care Provider + Allergies Active Allergy Reactions Criticality Noted Date Comments Amoxicillin High 07/21/2017 Sulfa (Sulfonamide Antibiotics) 01/2024 Tetracycline High 07/21/2017 Medications phenazopyridine (PYRIDIUM) 100 MG tablet Take 2 tablets (200 mg total) by mouth 3 (three) times a day as needed for pain (specific location in comments) (URINARY DISCOMFORT). 6 tablet 2 Active Additional Information Patient not taking.Reported on 03/08/2023 nitrofurantoin macrocrystaL (MACRODANTIN) 100 MG capsule Take 1 capsule (100 mg total) by mouth 2 (two) times a day. 14 capsule 2 Active Additional Information Patient not taking.Reported on 03/08/2023 albuterol 90 mcg/actuation inhaler Inhale 2 puffs into the lungs every 6 (six) hours as needed for wheezing. Active cephalexin (KEFLEX) 500 MG capsule TAKE 1 CAPSULE BY MOUTH 4 TIMES A DAY FOR 10 DAYS 4 Active clindamycin (CLEOCIN) 300 MG capsule TAKE 1 CAPSULE BY MOUTH EVERY 12 HOURS UNTIL FINISHED 4 Active cyclobenzaprine (FLEXERIL) 5 MG tablet take 1 tablet by mouth 3 times a day for 7 days 4 Active Active Problems Problem Noted Date Diagnosed Date Cervical disc disease 04/16/2024 Class 1 obesity 04/16/2024 Exercise-induced asthma 04/16/2024 Myofascial neck pain 04/16/2024 Immunizations Immunization Administration Dates Next Due PPD Test 11/18/2023 Social History Tobacco Use Types Packs/Day Years Used Date Smoking Tobacco: Some Days Cigarettes Smokeless Tobacco: Never Alcohol Use Standard Drinks/Week Comments Never 0 (1 standard drink = 0.6 oz pur e alcohol) Education Answer Date Recorded Are you interested in more education? Not on rick e 09/03/2022 Are you concerned about learning? Not on file 09/03/2022 No 09/03/2022 No 09/03/2022 Digital Access Answer Date Recorded No 10/05/2022 No 10/05/2022 Reliable internet access at home? Not on file 10/05/2022 Device with a working camera? Not on file Intimate Partner Violence Answer Date R ecorded Are you denied basic needs s uch as food, clothing, or medical care? No 03/08/2023 In the past 12 months have y ou been in a relationship with a person who hurts, threatens, or tries to control you? No 03/08/2023 Are you denied basic needs s uch as food, clothing, or medical care? No 03/08/2023 In the past 12 months have y ou been in a relationship with a person who hurts, threatens, or tries to control you? No 03/08/2023 Comments Unknown Sex and Gender Information Value Date Recorded Sex Assigned at Female 08/05/2020 7:10 AM EDT Legal Sex Female 5:11 PM EST Gender Identity Female 08/05/2020 7:10 AM EDT Sexual Orientation Straight 08/05/2020 7: 10 AM EDT Last Filed Vital Signs Vital Sign Reading Time Taken Comments Blood Pressure 123/87 04/16/2024 10:25 AM EST Pulse 98 04/16/2024 10:25 AM EST Temperature 36.9 C (98.4 F) 04/16/2024 10:25 AM EST Respiratory Rate 16 04/16/2024 10:25 AM EST Oxygen Saturation 99% 04/16/2024 10:25 AM EST Inhaled Oxygen Concentration - - Weight 77.1 kg (170 lb) 11/18/2023 12:03 PM EDT Height 152.4 cm (5') 11/18/2023 12:03 PM EDT Body Mass Index 33.2 11/18/2023 12:03 PM EDT Plan of Treatment Health Maintenance Due Date Last Done Comments DEPRESSION SCREENING 2006 SMOKING Hx and SMOKELESS TOBACCO SCREENING 2007 HEPATITIS C SCREENING 2012 HIV ONE-TIME SCREENING (18-6 5 YEARS) 2012 PNEUMOCOCCAL VACCINES (0-49 years) (1 of 2 - PCV) 2013 PAP SMEAR 2015 INFLUENZA VACCINE (#1) 2024 02/23/2018 COVID-19 VACCINE (1 - 2024-2 6 season) 2025 Adult Td,Tdap Booster 01/28/2028 01/27/2018 , 09/11/2015 HEPATITIS A VACCINES Aged Out No long er eligible based on patient's age to complete this topic HIB VACCINES Aged Out No longer eligi ble based on patient's age to complete this topic IPV VACCINES Aged Out No longer eligi ble based on patient's age to complete this topic MENINGOCOCCAL VACCINES (ACWY) Aged Out No longer eligible based on patient's age to complete this topic MENINGOCOCCAL VACCINES (B) Aged Out N o longer eligible based on patient's age to complete this topic Medical Devices Not on file Insurance [facility] C[employer]ENTRY POS * Guarantor: Fernanda Kauffman Account Type Relation to Patient Date of Phone Billing Address Personal/Family Self [address] [place] [address] [employer] * Guarantor: Fernanda Kauffman Account Type Relation to Patient Date of Phone Billing Address Personal/Family Self [address] [place] [address] [employer] * Guarantor: Fernanda Kauffman Account Type Relation to Patient Date of Phone Billing Address Personal/Family Self [address] [place] [address] [employer] * Guarantor: Fernanda Kauffman Account Type Relation to Patient Date of Phone Billing Address Personal/Family Self [address] [place] [address] [employer] * Guarantor: Fernanda Kauffman Account Type Relation to Patient Date of Phone Billing Address Personal/Family Self [address] [place] [address] * Guarantor: Fernanda Kauffman Account Type Relation to Patient Date of Phone Billing Address Personal/Family Self [address] [place] [address] * Guarantor: Fernanda Kauffman Account Type Relation to Patient Date of Phone Billing Address Personal/Family Self [address] [place] [address] Care Teams Complaint Operator Relationship Specialty Start Date End Date Avi Edmondson PA [address] [place] [address] PCP - General 01/19/21 Additional Source Comments The information contained in this document represents components of the legal health record. It is not the complete legal health record.[facility]
== END 2025-03-19 15:31 | disposition home or self-care (01) ==
PROVIDERS: Registered Nurse Emergency; Emergency Provider Emergency Medicine; PCP Nurse Practitioner Family
DX: O26.891 Other specified pregnancy related conditions, first trimester (principal); Z3A.01 Less than 8 weeks gestation of pregnancy; J40 Bronchitis, not specified as acute or chronic; R10.9 Unspecified abdominal pain; R05.9 Cough, unspecified; R51.9 Headache, unspecified; R50.9 Fever, unspecified; R42 Dizziness and giddiness; Z03.818 Encounter for observation for suspected exposure to other biological agents ruled out
CPT/HCPCS: 36415; 76801; 76817; 80053; 84702; 85025; 87637; 99282; 99284

== ENCOUNTER → 2025-03-19 13:58 | Outpatient (BNV) | payer SELFPAY | PROVIDERS: Emergency Provider Emergency Medicine; PCP Nurse Practitioner Family; Visit Provider Radiology Diagnostic Radiology | DX: O26.891 Other specified pregnancy related conditions, first trimester (principal) | CPT/HCPCS: 76801; 76817 ==